=== PATIENT | male | born 1995 | race Hispanic/Latino ===

== ENCOUNTER 2021-04-30 19:13 | Emergency (ER) | payer OTHER, SELFPAY ==
[2021-04-30] MEDS ORDERED: NA CHLORIDE 0.9% 1,000 ML ONE (19:57)
[2021-04-30] MEDS ORDERED: KETOROLAC 30 MG/ML INJ ONE (19:57)
[2021-04-30 20:02] LABS: Basophils % 0.2 % (0-1.3); Hematocrit 43.3 % (39.6-49.0); MPV 8.6 fL (7.6-11.3); RBC Red Blood Cell Count 5.17 M/uL (4.33-5.43)
[2021-04-30 20:06] LABS: Protime INR 1.07
--- NOTE | 2021-04-30 20:15 | RAD REPORT ---
EXAM DESCRIPTION: Sukumar Single View04/30/2021 7:56 pm CLINICAL HISTORY: Chest pain COMPARISON: none FINDINGS: The lungs appear clear of acute infiltrate. The heart is normal size IMPRESSION: No acute abnormalities displayed
[2021-04-30 20:19] LABS: ALT/SGPT 95 U/L (12-78); AST/SGOT 30 U/L (15-37); Albumin 4.2 g/dL (3.4-5.0); Alkaline Phosphatase 114 U/L (45-117); BUN Blood Urea Nitrogen 15 mg/dL (7-18); Bicarbonate 27 mmol/L (21-32); Bilirubin Direct 0.1 mg/dL (0-0.2); Bilirubin Total 0.5 mg/dL (0.2-1.0); Glucose Level 95 mg/dL (74-106); NT PRO-BNP 14 pg/mL (<125); Potassium 3.6 mmol/L (3.5-5.1); Protein, Total 8.5 g/dL (6.4-8.2); Sodium Level 137 mmol/L (136-145); Troponin (Emerg Dept Use Only) < 0.02 ng/mL (0.0-0.045)
--- NOTE | 2021-04-30 21:00 | ER ---
Nurse's Notes [facility] Name: David Vaughan Age: 25 yrs Sex: Male : 1995 Arrival Date: 04/30/2021 Time: 19:23 Bed 17 Private MD: Diagnosis: Chest wall pain Presentation: 04/30 19:24 Chief complaint: Patient states: he was vaccinated for COVID yesterday with Moderna at bb approx 1100 then last night around 0300 he started having chest pain which is constant and pain with respirations. Coronavirus screen: At this time, the client does not indicate any symptoms associated with coronavirus-19. Ebola Screen: No symptoms or risks identified at this time. Initial Sepsis Screen: Does the patient meet any 2 criteria? No. Patient's initial sepsis screen is negative. Does the patient have a suspected source of infection? No. Patient's initial sepsis screen is negative. Risk Assessment: Do you want to hurt yourself or someone else? Patient reports no desire to harm self or others. Onset of symptoms was April 30, 2021. 19:24 Method Of Arrival: Ambulatory 19:24 Acuity: SAAD 3 bb Historical: - Allergies: 19:27 No Known Allergies; bb - Home Meds: 19:27 None [Active]; bb - PMHx: 19:27 None; bb - PSHx: 19:27 None; bb - Immunization history:: Adult Immunizations up to date, Client reports receiving the 1st dose of the Covid vaccine. - Social history:: Smoking status: Patient denies any tobacco usage or history of. Patient/guardian denies using alcohol, street drugs. Screenin:40 Abuse screen: Denies threats or abuse. Nutritional screening: No deficits noted. jb4 Tuberculosis screening: No symptoms or risk factors identified. Fall Risk None identified. Assessment: 19:40 General: Appears in no apparent distress. uncomfortable, Behavior is calm, cooperative, jb4 appropriate for age. Pain: Complains of pain in anterior aspect of left upper chest Pain does not radiate. Pain currently is 10 out of 10 on a pain scale. Quality of pain is described as pressure, Pain began 1 day ago. Neuro: Level of Consciousness is awake, alert, obeys commands, Oriented to person, place, time, situation. Cardiovascular: Patient's skin is warm and dry. Respiratory: Airway is patent Respiratory effort is even, unlabored, Respiratory pattern is regular, symmetrical. GI: No signs and/or symptoms were reported involving the gastrointestinal system. : No signs and/or symptoms were reported regarding the genitourinary system. EENT: No signs and/or symptoms were reported regarding the EENT system. Derm: Skin is intact, Skin is pink, warm \T\ dry. Musculoskeletal: Circulation, motion, and sensation intact. Range of motion: intact in all extremities. 21:11 Reassessment: Patient appears in no apparent distress at this time. Patient and/or jb4 family updated on plan of care and expected duration. Pain level reassessed. Patient is alert, oriented x 3, equal unlabored respirations, skin warm/dry/pink. Vital Signs: 19:24 BP 135 / 80; Pulse 100; Resp 16 S; Temp 98.8(O); Pulse Ox 98% on R/A; Weight 83.91 kg bb (R); Height 5 ft. 8 in. (172.72 cm) (R); Pain 10/10; 21:11 BP 127 / 80; Pulse 72; Resp 16; Pulse Ox 98% on R/A; jb4 19:24 Body Mass Index 28.13 (83.91 kg, 172.72 cm) bb ED Course: 19:23 Patient arrived in ED. es 19:26 Triage completed. bb 19:27 Arm band placed on Patient placed in an exam room, on a stretcher, on pulse oximetry. bb 19:28 Miguel Ware MD is Attending Physician. tw4 19:32 Jorge Hector, ELIA is Primary Nurse. jb4 19:40 Patient has correct armband on for positive identification. Bed in low position. Call jb4 light in reach. Side rails up X 1. monitoring tech on. Pulse ox on. NIBP on. 19:45 Inserted saline lock: 18 gauge in right antecubital area, using aseptic technique. jb4 Blood collected. Patient maintains SpO2 saturation greater than 95% on room air. 19:56 XRAY Chest (1 view) In Process Unspecified. EDMS 21:11 No provider procedures requiring assistance completed. IV discontinued, intact, jb4 bleeding controlled, No redness/swelling at site. Pressure dressing applied. Administered Medications: 19:45 Drug: TORadol (ketorolac) 30 mg Route: IVP; Site: right antecubital; jb4 20:15 Follow up: Response: No adverse reaction; Marked relief of symptoms; Pain is decreased jb4 19:45 Drug: NS 0.9% 1000 ml Route: IV; Rate: 1 bolus; Site: right antecubital; jb4 20:45 Follow up: Response: No adverse reaction; IV Status: Completed infusion; IV Intake: jb4 1000ml Intake: 20:45 IV: 1000ml; Total: 1000ml. jb4 Outcome: 21:00 Discharge ordered by . tw4 21:11 Discharged to home ambulatory. jb4 21:11 Condition: stable 21:11 Discharge instructions given to patient, Instructed on discharge instructions, follow up and referral plans. medication usage, Demonstrated understanding of instructions, follow-up care, medications, Prescriptions given X 1. 21:16 Patient left the ED. jb4 Signatures: Dispatcher [employer] Jie Nunez Brenda, RN RN bb Bryson, James, RN RN jb4 Miguel Ware MD MD tw4
--- NOTE | 2021-04-30 21:01 | EDPHYS ---
Physician Documentation [facility] Name: David Vaughan Age: 25 yrs Sex: Male : 1995 Arrival Date: 04/30/2021 Time: 19:23 Bed 17 Private MD: ED Physician Miguel Ware HPI: 04/30 20:47 This 25 yrs old Male presents to ER via Ambulatory with complaints of Chest tw4 Pain. 20:47 The patient or guardian reports chest pain that is located primarily in the anterior tw4 chest wall. The pain does not radiate. Associated signs and symptoms: The patient has no apparent associated signs or symptoms. The chest pain is described as dull. Duration: The patient or guardian reports a single episode. Severity of pain: At its worst the pain was moderate in the emergency department the pain is unchanged. movement, nothing. The patient has not experienced similar symptoms in the past. Historical: - Allergies: 19:27 No Known Allergies; bb - Home Meds: 19:27 None [Active]; bb - PMHx: 19:27 None; bb - PSHx: 19:27 None; bb - Immunization history:: Adult Immunizations up to date, Client reports receiving the 1st dose of the Covid vaccine. - Social history:: Smoking status: Patient denies any tobacco usage or history of. Patient/guardian denies using alcohol, street drugs. ROS: 20:47 Constitutional: Negative for fever, chills, and weight loss, Eyes: Negative for injury, tw4 pain, redness, and discharge, Respiratory: Negative for shortness of breath, cough, wheezing, and pleuritic chest pain, Abdomen/GI: Negative for abdominal pain, nausea, vomiting, diarrhea, and constipation, Back: Negative for injury and pain, MS/Extremity: Negative for injury and deformity, Skin: Negative for injury, rash, and discoloration, Neuro: Negative for headache, weakness, numbness, tingling, and seizure. 20:47 Cardiovascular: Positive for chest pain. Exam: 20:47 Constitutional: This is a well developed, well nourished patient who is awake, alert, tw4 and in no acute distress. Head/Face: Normocephalic, atraumatic. Chest/axilla: Normal chest wall appearance and motion. Nontender with no deformity. No lesions are appreciated. Cardiovascular: Regular rate and rhythm with a normal S1 and S2. No gallops, murmurs, or rubs. Normal PMI, no JVD. No pulse deficits. Respiratory: Lungs have equal breath sounds bilaterally, clear to auscultation and percussion. No rales, rhonchi or wheezes noted. No increased work of breathing, no retractions or nasal flaring. Abdomen/GI: Soft, non-tender, with normal bowel sounds. No distension or tympany. No guarding or rebound. No evidence of tenderness throughout. Back: No spinal tenderness. No costovertebral tenderness. Full range of motion. Skin: Warm, dry with normal turgor. Normal color with no rashes, no lesions, and no evidence of cellulitis. MS/ Extremity: Pulses equal, no cyanosis. Neurovascular intact. Full, normal range of motion. Neuro: Awake and alert, GCS 15, oriented to person, place, time, and situation. Cranial nerves II-XII grossly intact. Motor strength 5/5 in all extremities. Sensory grossly intact. Cerebellar exam normal. Normal gait. Vital Signs: 19:24 BP 135 / 80; Pulse 100; Resp 16 S; Temp 98.8(O); Pulse Ox 98% on R/A; Weight 83.91 kg bb (R); Height 5 ft. 8 in. (172.72 cm) (R); Pain 10/10; 21:11 BP 127 / 80; Pulse 72; Resp 16; Pulse Ox 98% on R/A; jb4 19:24 Body Mass Index 28.13 (83.91 kg, 172.72 cm) bb MDM: 20:52 Differential diagnosis: acute pericarditis, costochondritis, pulmonary embolus, stable tw4 angina. Data reviewed: vital signs, nurses notes. Data interpreted: Pulse oximetry: Interpretation: normal. Counseling: I had a detailed discussion with the patient and/or guardian regarding: the historical points, exam findings, and any diagnostic results supporting the discharge/admit diagnosis, lab results, radiology results. Special discussion: I discussed with the patient/guardian in detail that at this point there is no indication for admission to the hospital. It is understood, however, that if the symptoms persist or worsen the patient needs to return immediately for re-evaluation. 20:59 Patient medically screened. tw4 06/04 19:28 Order name: CBC with Diff tw4 04/30 20:46 Interpretation: Normal except: SHARRON% 79.0; LYM% 11.0. tw4 04/30 19:42 Order name: LFT's; Complete Time: 20:46 tw4 04 20:46 Interpretation: Within normal limits: BILID 0.1. tw4 04/30 19:42 Order name: Magnesium; Complete Time: 20:46 tw4 04/30 20:46 Interpretation: Within normal limits: MG 2.0. tw4 04/30 19:42 Order name: NT PRO-BNP; Complete Time: 20:46 tw4 04/30 20:46 Interpretation: Within normal limits: NT PRO-BNP 14. tw4 04/30 19:42 Order name: PT-INR; Complete Time: 20:46 tw4 04/30 20:46 Interpretation: Within normal limits: PT 12.3. tw4 04/30 19:42 Order name: Troponin (emerg Dept Use Only); Complete Time: 20:46 tw4 04/30 20:46 Interpretation: Within normal limits: TROPED < 0.02. tw4 04/30 19:42 Order name: XRAY Chest (1 view); Complete Time: 20:46 tw4 04/30 19:42 Order name: EKG; Complete Time: 19:42 tw4 04/30 19:42 Order name: Cardiac monitoring; Complete Time: 19:51 tw4 04/30 19:55 Order name: Comprehensive Metabolic Panel; Complete Time: 20:46 EDMS 04 20:46 Interpretation: Within normal limits. tw4 04/30 21:02 Order name: CBC Smear Scan EDMS 04/30 19:42 Order name: EKG - Nurse/Tech; Complete Time: 19:51 tw4 04/30 19:42 Order name: IV Saline Lock; Complete Time: 19:51 tw4 04/30 19:42 Order name: Labs collected and sent; Complete Time: 19:51 tw4 04/30 19:42 Order name: O2 Per Protocol; Complete Time: 19:51 tw4 04/30 19:42 Order name: O2 Sat Monitoring; Complete Time: 19:51 tw4 EC:47 Rate is 97 beats/min. Rhythm is regular. Right axis deviation noted. AL interval is tw4 normal. QRS interval is normal. QT interval is normal. No Q waves. T waves are Normal. No ST changes noted. Clinical impression: Normal ECG. Interpreted by me. Reviewed by me. Administered Medications: 19:45 Drug: TORadol (ketorolac) 30 mg Route: IVP; Site: right antecubital; jb4 20:15 Follow up: Response: No adverse reaction; Marked relief of symptoms; Pain is decreased jb4 19:45 Drug: NS 0.9% 1000 ml Route: IV; Rate: 1 bolus; Site: right antecubital; jb4 20:45 Follow up: Response: No adverse reaction; IV Status: Completed infusion; IV Intake: jb4 1000ml Disposition: 04/30/21 21:00 Discharged to Home. Impression: Chest wall pain. - Condition is Stable. - Discharge Instructions: Costochondritis. - Prescriptions for Ibuprofen 800 mg Oral Tablet - take 1 tablet by ORAL route every 8 hours As needed take with food; 30 tablet. - Medication Reconciliation Form, Thank You Letter, Antibiotic Education, Prescription Opioid Use form. - Follow up: Private Physician; When: Upon discharge from the Emergency Department; Reason: Recheck today's complaints, Continuance of care, Re-evaluation by your physician. - Problem is new. - Symptoms have improved. Signatures: Dispatcher [employer] Prachi Oconnell RN RN Jorge Naylor RN RN jb4 Miguel Ware MD MD tw4 Corrections: (The following items were deleted from the chart) 19:55 19:29 COMPREHENSIVE METABOLIC PANEL+[id number].LAB.BRZ ordered. [facility] 21:16 21:00 04/30/2021 21:00 Discharged to Home. Impression: Chest wall pain. Condition is jb4 Stable. Forms are Medication Reconciliation Form, Thank You Letter, Antibiotic Education, Prescription Opioid Use. Follow up: Private Physician; When: Upon discharge from the Emergency Department; Reason: Recheck today's complaints, Continuance of care, Re-evaluation by your physician. Problem is new. Symptoms have improved. tw4
[2021-04-30 21:02] LABS: Platelet Estimate ADEQ; White Blood Cell Scan OK (OK)
[2021-04-30 21:04] LABS: Blood Morphology Comment NOT SEEN (NOT SEEN)
[2021-04-30 21:23] VITALS: TEMP 98.8; O2SAT 98
[2021-04-30 21:24] VITALS: BP 127/80
== END 2021-04-30 21:16 | disposition home or self-care (01) ==
LOC: ER 19:13
DX: R07.89 Other chest pain (principal)
CPT/HCPCS: 85025; 36415; 83735; 85610; 80076; 84484; 80053; 83880; 71045; J7030; 93005; 96361; 96374; 99285